=== PATIENT | female | born 2000 | race Two or more races ===

== ENCOUNTER → 2024-12-02 | Outpatient (CLI) | payer OTHER | LOC: M WHC 10:08 | PROVIDERS: ATTEND Student in an Organized Health Care Education/Training Program | DX: N80.103 Endometriosis of bilateral ovaries, unspecified depth (principal); R93.89 Abnormal findings on diagnostic imaging of other specified body structures ==

== ENCOUNTER → 2024-12-21 | Outpatient (CLI) | payer OTHER ==
[~2024-12-21] MED LIST: ISOVUE-370 76% 100 ML VIAL As Ordered ONE
== END ==
LOC: M RADPRO 12:01
PROVIDERS: ATTEND Student in an Organized Health Care Education/Training Program
DX: N97.9 Female infertility, unspecified (principal)
CPT/HCPCS: 58340; 74740; Q9967